=== PATIENT | male | born 1975 | race Caucasian/White ===

== ENCOUNTER 2022-07-11 13:51 | Emergency (ER) | payer BC ==
[2022-07-11] MEDS ORDERED: MORPHINE 4 MG/ML SYR ONE (14:13)
[2022-07-11] MEDS ORDERED: SILVER SULFADIAZINE 1% 25 GM TOP ONE (14:13)
[2022-07-11] MEDS ORDERED: TETANUS & DIPHTHERIA TOX,ADULT 0.5 ML VIAL ONE (14:13)
[2022-07-11] MEDS ORDERED: NA CHLORIDE 0.9% 1,000 ML ONE (14:13)
[2022-07-11] MEDS ORDERED: HYDROMORPHONE HCL 1 MG/ML INJ ONE (14:50)
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
[2022-07-11 16:18] VITALS: TEMP 98.2
[2022-07-11 16:20] VITALS: BP 151/98; O2SAT 99
== END 2022-07-11 16:14 | disposition home or self-care (01) ==
LOC: ER 13:51
DX: T24.231A Burn of second degree of right lower leg, initial encounter (principal); T20.10XA Burn of first degree of head, face, and neck, unspecified site, initial encounter; T22.111A Burn of first degree of right forearm, initial encounter; T31.0 Burns involving less than 10% of body surface; Z23 Encounter for immunization
CPT/HCPCS: 90714; J1170; J7030